=== PATIENT | female | born 1935 | race Caucasian/White ===

== ENCOUNTER → 2016-06-28 | Day surgery (SDC) | payer MEDICARE ==
[~2016-06-28] MED LIST: ALLO300T2 PO; ASPI81 PO; ATEN1TAB74 PO; BUPIVACAINE/EPINEPHRINE 0.5% 50 ML VIAL ONE; CITA10TA4 PO; ERYT1O TOP; GLIP5 PO; GUAI600 PO; HYDR-2768 PO; IPRA0.02 INH; ISOSULFAN BLUE 50 MG/5 ML VIAL SQ ONE; LACTATED RINGER'S 1000 ML INJ 1,000 ML ONE; LEVA500T PO; LEVO100T60 PO; LISI40TA PO; MIDAZOLAM HCL 2 MG/2 ML VIAL ONE; NIAC500T18 PO; ONDANSETRON HCL 4 MG/2 ML VIAL IV PUSH ONE; POTA-243 PO; PROPOFOL 200 MG/20 ML AMP IV ONE; SIMV20 PO; SODIUM CHLORIDE 0.9% INJ 10 ML ONE; ceFAZolin 2 GM PREMIX 50 ML ONE
--- NOTE | 2016-06-28 13:37 | TN ---
cc: GEMINI MADISON M.D. DATE OF SURGERY 06/28/2016 PRINCIPAL DIAGNOSIS Multifocal left breast cancer POSTOPERATIVE DIAGNOSIS Multifocal left breast cancer PROCEDURE PERFORMED Left mastectomy and left axillary sentinel lymph node biopsy. SURGEON Gemini Madison MD ANESTHESIA General via LMA device. INDICATION The patient is a 80-year-old female with a history of right breast cancer who presented with a lower inner left breast cancer. Subsequent workup demonstrated a second cancer in the upper outer left breast and she now presents for mastectomy. FINDINGS AT THE TIME OF SURGERY Normal left axillary anatomy was identified was identified. Four sentinel lymph nodes were removed. Lymph node #1 had a count of 4311, sentinel lymph node #2 had a count of 3169, sentinel lymph node #3 had a count of 1477, sentinel lymph node #4 had a count of 603. No touch prep was performed. PROCEDURE PERFORMED After informed consent was obtained and site verification was performed, the patient was brought to radiology where she underwent peritumoral radionuclide injection. She was then brought to the major operating room where she underwent general anesthesia via an LMA device. She was given a single dose of IV Ancef and sequential compression hose were placed. The left breast and arm were prepped and draped in a sterile fashion. Two cc of half-strength Lymphazurin were injected in the subareolar left breast and a 5-minute massage was performed. An elliptical incision was marked out to include the prior biopsy site and 180 cc of tumescent solution mixed with 30 cc of Marcaine were then injected in the plane between the subcutaneous fat and anterior breast fascia circumferentially around the breast. Further sharp dissection was then performed in the same plane superiorly to the clavicle, medially to the parasternal area, inferiorly to the anterior rectus sheath, and laterally to the axilla. The breast tissue was then dissected using electrocautery off the pectoralis muscle to include the pectoral fascia with the specimen. The breast was amputated in the axilla and the specimen was oriented with the skin anterior, one short suture superiorly, and one long suture laterally. The breast was then sent for permanent pathologic evaluation. The clavipectoral fascia was then divided and the level I axilla was entered. There were some less than 1 cm palpable mid level I lymph nodes and each of these was circumferentially dissected free from surrounding structures using the harmonic scalpel. The four sentinel lymph nodes had the count as noted and some adjacent axillary tissue with no count was sent as a permanent specimen. There was no blue dye enhancement in any of the nodes. The background count was 23 and good hemostasis was noted along the axilla and the chest wall. A stab wound was created along the left axillary line and a 10-Portuguese channel drain was placed along the left chest wall and secured to the skin with a 3-0 nylon suture. Good hemostasis was noted and the wound was closed using interrupted 3-0 Vicryl subcutaneous sutures and a 4-0 Monocryl subcuticular suture. Steri-Strips and a sterile dressing were applied. The patient tolerated the procedure well with an estimated blood loss of 50 cc and she was extubated in the operating room and brought to the recovery room in good condition. All sponge and needle counts were correct at the conclusion of the case. MD KAMINI Santoro/JES /12:21 PM /1:22 PM
== END | disposition home or self-care (01) ==
LOC: ESDC 07:38
PROVIDERS: ATTEND Surgery
DX: C50.312 Malignant neoplasm of lower-inner quadrant of left female breast (principal)
CPT/HCPCS: 88307; 88309; J0690; J2250; J2405; J3010; J7120; Q9968

== ENCOUNTER 2016-07-15 19:54 | Emergency (ER) | payer MEDICARE ==
[~2016-07-15] VITALS: Ht 165.1 cm; Wt 75.9 kg
[~2016-07-15 19:54] MED LIST changes: -BUPIVACAINE/EPINEPHRINE 0.5% 50 ML VIAL ONE; -ISOSULFAN BLUE 50 MG/5 ML VIAL SQ ONE; -LACTATED RINGER'S 1000 ML INJ 1,000 ML ONE; -MIDAZOLAM HCL 2 MG/2 ML VIAL ONE; -ONDANSETRON HCL 4 MG/2 ML VIAL IV PUSH ONE; -PROPOFOL 200 MG/20 ML AMP IV ONE; -SODIUM CHLORIDE 0.9% INJ 10 ML ONE; -ceFAZolin 2 GM PREMIX 50 ML ONE
[2016-07-15 19:56] VITALS: BP 113/66; PULSE 93; RESP 16; TEMP 97.6; O2SAT 86
[2016-07-15 21:00] LABS: AUTOMATED NEUTROPHIL # 12.6 TH/MM3 (1.8-7.7); BASOPHIL # 0.1 TH/MM3 (0-0.2); BASOPHIL % 0.5 % (0.0-2.0); EOSINOPHIL % 0.1 % (0.0-4.0); HEMATOCRIT 35.7 % (35.0-46.0); HEMO FLAGS DIFF FINAL; LYMPH % 13.2 % (9.0-44.0); LYMPHOCYTE # 2.1 TH/MM3 (1.0-4.8); MEAN CELL VOLUME 95.9 FL (80.0-100.0); MEAN CORPUSCULAR HEMOGLOBIN 32.6 PG (27.0-34.0); MONO % 6.4 % (0.0-8.0); NEUT % 79.8 % (16.0-70.0); PLATELET COUNT 173 TH/MM3 (150-450); RED BLOOD COUNT 3.73 MIL/MM3 (4.00-5.30); RED CELL DISTRIBUTION WIDTH 15.4 % (11.6-17.2); WHITE BLOOD COUNT 15.8 TH/MM3 (4.0-11.0)
[2016-07-15 21:13] LABS: ANION GAP 8 MEQ/L (5-15); AST (GOT) 11 U/L (15-37); BICARBONATE 25.5 MEQ/L (21.0-32.0); BLOOD UREA NITROGEN 17 MG/DL (7-18); CHLORIDE 103 MEQ/L (98-107); GLOMERULAR FILTRATION RATE 55 ML/MIN (>89); POTASSIUM 3.9 MEQ/L (3.5-5.1); SODIUM (NA) 136 MEQ/L (136-145)
[2016-07-15 21:17] LABS: ALKALINE PHOSPHATASE 116 U/L (45-117); ALT (GPT) 15 U/L (10-53); TOTAL BILIRUBIN ADULT 1.3 MG/DL (0.2-1.0)
--- NOTE | 2016-07-16 11:31 | EKG ---
Date Performed: 07/15/2016 Time Performed: 20:28:14 PTAGE: 80 years EKG: Sinus rhythm WITH MARKED SINUS ARRHYTHMIA NONSPECIFIC ST & T-WAVE ABNORMALITY Compared to previous tracing, ST-T wave abnormality is new. BORDERLINE ECG PREVIOUS TRACING : 12/17/2011 06.21 DOCTOR: Ananda Washington Interpretating Date/Time 07/16/2016 11:31:16
== END 2016-07-16 00:13 | disposition left against medical advice (07) ==
LOC: NETRI 19:54
DX: R19.7 Diarrhea, unspecified (principal)
CPT/HCPCS: 80053; 85025; 93005; 99281